=== PATIENT | female | born 1940 | race African-American/Black ===

== ENCOUNTER 2016-08-21 09:05 | Emergency (ER) | payer OTHER ==
--- NOTE | 2016-08-21 09:22 | PROVIDER DOCUMENTATION ---
HPI-Respiratory General - General Chief Complaint: Cough Stated Complaint: cough, seen thurs for same Time Seen by Provider: 08/21/16 09:16 Source: patient Allergies/Adverse Reactions: Patient Allergies Allergy/AdvReac Type Severity Reaction Status Date / Time codeine [Codeine] Allergy Severe ITCHING Verified 05/12/16 09:46 Home Medications: Esomeprazole [Nexium] 40 mg PO DAILY 03/29/13 Losartan/Hctz [Hyzaar 50/12.5 mg] 1 each PO QAM 03/29/13 Alprazolam [Xanax] 2 mg PO DAILY 11/11/15 Metronidazole [Flagyl] 500 mg PO BID 05/12/16 Promethazine [Phenergan] 25 mg PO Q6H PRN PRN 05/12/16 - History of Present Illness-Resp Nature of Presenting Problem: 6 days ago cough headache green phlegm camse to er tuesday nite cxr neg cough syrup and phenergan Quality of Pain: reports: aching, sharp Severity in ED: reports: mild Onset/Duration: reports: 6 days ago Timing: reports: still present Context: reports: recent URI Exposure: reports: illness exposure Cough Quality/Degree: reports: productive cough, blood streaked sputum Episode Frequency: occasional episodes Current Respiratory Medication Therapy: Initiated albuterol/atrovent inhale Modifying Factors: improves with: nothing Associated Symptoms: reports: cough, wheezing. denies: earache, fever/chills, flu-like symptoms, short of breath Similar Symptoms Previously?: Yes Recently seen or treated by another doctor?: Yes Review of Systems - Adult - REVIEW OF SYSTEMS - ADULT Constitutional: reports: chills. denies: fever Eyes: denies: discharge, dry eyes, redness Ears, Nose, Mouth & Throat: reports: hoarseness, throat pain. denies: ear discharge, ear pain, epistaxis Cardiovascular: denies: chest pain, palpitations Respiratory: reports: cough, shortness of breath Gastrointestinal: denies: constipation, diarrhea, nausea, vomiting Genitourinary: denies: dysuria, discharge, frequency, incontinence, urgency Musculoskeletal: reports: bone pain, muscle aches Integumentary: reports: no symptoms reported Neurological: reports: headache/migraines Psychiatric: reports: no symptoms reported Endocrine: reports: no symptoms reported Hematologic/Lymphatic: reports: no symptoms reported Allergic/Immunologic: reports: no symptoms reported Past History - Adult - PAST MEDICAL HISTORY-ADULT Review of Records: reports: Nursing Assessment Review, Medications Reviewed, Social history reviewed & non-contributory. Major Childhood Illnesses: reports: denies history Cardiovascular: reports: CAD, HTN Respiratory: reports: bronchitis Gastrointestinal: denies: GERD Psychiatric: reports: anxiety Endocrine/Immune: reports: Diabetes - PRIOR SURGERIES/PROCEDURES Surgical/Procedure History: reports: appendectomy, cholecystectomy, cardiac stent, hysterectomy, orthopedic (extremity) (Total knee ), back/neck (back sx), other (TMJ ) - PRIOR HOSPITALIZATIONS Prior Hospitalizations: reports: for other non-related - IMMUNIZATION STATUS Childhood Immunizations: See Nurse Assessment Flu Vaccine: See Nurse Assessment - FAMILY HISTORY Family History: reviewed, not pertinent Physical Exam-General - PHYSICAL EXAM-ADULT Initial Vital Signs Reviewed: Yes - CONSTITUTIONAL General Appearance: appears well - EYES Eyes: PERRL/EOMI, pink conjunctivae - HEAD, EARS, NOSE, MOUTH & THROAT HENMT: normocephalic/atraumatic, TMs normal, pharynx normal - NECK Neck: supple - RESPIRATORY Respiratory: wheezing - CARDIOVASCULAR Cardiovascular: normal peripheral pulses - GASTROINTESTINAL (ABDOMEN) Abdominal Exam: soft - LYMPHATIC Lymphatic: no adenopathy - MUSCULOSKELETAL Back Exam: normal inspection Extremity: normal range of motion - SKIN Integumentary: normal color, normal turgor - NEUROLOGIC Neurologic: grossly normal - PSYCHIATRIC Psych/Mental Status: normal mood/affect Progress - PLAN OF CARE/RESULTS Progress/Plan/Lab Results: Laboratory Tests 08/21/16 08/21/16 09:22 09:36 WBC 9.55 RBC 3.88 L Hgb 12.0 Hct 38.0 MCV 97.9 MCH 30.9 MCHC 31.6 L RDW Std Deviation 11.3 L Plt Count 186 MPV 9.8 Immature Gran % (Auto) 0.3 Neut % (Auto) 79.0 H Lymph % (Auto) 13.2 L [place] % (Auto) 5.4 Eos % (Auto) 1.7 Baso % (Auto) 0.4 Immature Gran # (Auto) 0.03 Neut # (Auto) 7.54 H Lymph # (Auto) 1.26 [place] # (Auto) 0.52 Eos # (Auto) 0.16 Baso # (Auto) 0.04 Specimen Type ARTERIAL Sample Site R BRACHIAL pH 7.43 pCO2 44 pO2 62 HCO3 28.1 H Base Excess 4.3 H Oxyhemoglobin 90.4 L ABG O2 Sat (Calculated) 14.8 L ABG O2 Saturation 95.8 ABG Carboxyhemoglobin 4.30 H ABG Methemoglobin 1.4 [place] Test YES A-a O2 Difference 33.0 Total Hemoglobin 11.6 Lactate 0.80 Blood Gas Modality ROOM AIR FiO2 % 21.0 - XRAY 1 XRAY Study: Chest Impression: Normal (nad) Departure - Departure Time of Disposition Order: 10:03 DIAGNOSIS: COPD exacerbation Disposition: HOME 01 Certified Medical Emergency: Emergent Condition: Stable Additional Instructions: ED Follow Up Instructions: You have been treated by a care provider in the Emergency Department. These instructions are being provided to you so you can have an understanding of how to care for yourself upon discharge. Upon discharge from the Emergency Department, you are responsible for making arrangements for follow-up care by a physician of your choice. Take all prescribed medications as directed. Return to the Emergency Department immediately for any new or worsening symptoms. You may call the Physician Referral phone number at [phone] to obtain a list of Physicians who are taking new patients. Prescriptions: Hydrocodone/Homatropine [Hydromet] 2 tsp PO Q4-6H PRN PRN #8 oz PRN Reason: Cough Prednisone 10 mg PO BID #10 tablet
[2016-08-21 09:37] LABS: BE 4.3 mmoll (-3.0-3.0); BLOOD TYPE ARTERIAL; DRAW SITE R BRACHIAL; METHB 1.4 % (0.0-1.5); O2(CT) 14.8 mL/dL (15.0-23.0); PCO2(98.6) 44 mmHg (35-45); PO2(98.6) 62 mmHg (60-100); SAMPLE BLOOD; SAO2 95.8 % (95.0-100.0); THB 11.6 g/dL (11.5-17.4); pH(98.6) 7.43 (7.35-7.45)
[2016-08-21 09:40] LABS: BASO% 0.4 % (0.0-0.8); EOS# 0.16 X1000 (0.0-0.7); EOS% 1.7 % (0.0-10.0); IMM GRAN# 0.03 X1000 (0.0-0.04); IMM GRAN% 0.3 % (0.0-0.5); LYMPH# 1.26 X1000 (1.2-3.4); LYMPH% 13.2 % (20.5-51.1); MANUAL DIFF NEEDED? NO; MCH 30.9 PG (27-31); MCHC 31.6 g/dL (33-37); MCV 97.9 FL (81-99); MONO# 0.52 X1000 (0.11-0.59); MONO% 5.4 % (1.7-9.3); MPV 9.8 FL (7.4-10.4); PLT 186 X1000 (130-400); RBC 3.88 XMIL (4.2-5.4)
[2016-08-21 09:42] LABS: MODALITY ROOM AIR
[2016-08-21 09:43] LABS: ALLEN TEST YES
[2016-08-21 10:15] VITALS: BP 136/71
--- NOTE | 2016-08-21 12:08 | Diag Imaging Result Document ---
PROCEDURE NAME: CHEST-2 VIEWS - 08/21/2016 PA AND LATERAL RADIOGRAPH OF THE CHEST: COMPARISON: 08/16/2016. FINDINGS: The lungs are grossly clear and are stable as compared to the previous study. There is no definite pleural fluid collection. Cardiac silhouette and central vasculature are grossly unremarkable. IMPRESSION: No evidence of acute pathology.
== END 2016-08-21 10:14 | disposition home or self-care (01) ==
LOC: P.ED 09:05
DX: J44.1 Chronic obstructive pulmonary disease with (acute) exacerbation (principal); R05 Cough; R06.2 Wheezing; R68.83 Chills (without fever); R07.0 Pain in throat; R06.02 Shortness of breath; I25.10 Atherosclerotic heart disease of native coronary artery without angina pectoris; I10 Essential (primary) hypertension; Z79.899 Other long term (current) drug therapy; M89.8X9 Other specified disorders of bone, unspecified site; M79.1 Myalgia; R51 Headache; Z95.5 Presence of coronary angioplasty implant and graft; E11.9 Type 2 diabetes mellitus without complications; F41.9 Anxiety disorder, unspecified; Z96.659 Presence of unspecified artificial knee joint
CPT/HCPCS: 36415; 71020; 82805; 85025; 99284

== ENCOUNTER 2016-10-30 10:22 | Emergency (ER) | payer OTHER ==
[2016-10-30 10:28] VITALS: BP 145/85
--- NOTE | 2016-10-30 12:29 | PROVIDER DOCUMENTATION ---
HPI-Musculoskeletal Pain/Inj - GENERAL Source: patient - LOWER EXTREMITY PAIN/INJURY Lower Extremities Pain: 5th toe: right <Olga Mondragon - Last Filed: 10/30/16 12:29> <Ayan Helms - Last Filed: 10/30/16 12:32> - GENERAL Chief Complaint: Sores/Lesions Stated Complaint: EXTREMITY PAIN Time Seen by Provider: 10/30/16 12:24 - HX OF PRESENT ILLNESS-MUSKULOSKELTAL Nature of Presenting Problem: [age] yo F presents to the ER with complaint of corn to R pinky toe. States it was bleeding last night when she got out of the shower. Denies hx of gout or any injury. (Olga Mondragon) Review of Systems - Adult - REVIEW OF SYSTEMS - ADULT Constitutional: denies: chills, fever Eyes: reports: no symptoms reported Ears, Nose, Mouth & Throat: reports: no symptoms reported Cardiovascular: reports: no symptoms reported Respiratory: reports: no symptoms reported Gastrointestinal: reports: no symptoms reported Genitourinary: reports: no symptoms reported Musculoskeletal: reports: joint pain, joint swelling Integumentary: reports: no symptoms reported Neurological: reports: no symptoms reported Psychiatric: reports: no symptoms reported Endocrine: reports: no symptoms reported Hematologic/Lymphatic: reports: no symptoms reported Allergic/Immunologic: reports: no symptoms reported All Other Systems: Reviewed and Negative <Olga Mondragon - Last Filed: 10/30/16 12:29> Past History - Adult - PAST MEDICAL HISTORY-ADULT Review of Records: reports: Nursing Assessment Review, Medications Reviewed, Social history reviewed & non-contributory. Major Childhood Illnesses: reports: denies history Cardiovascular: reports: CAD, HTN Respiratory: reports: bronchitis Gastrointestinal: denies: GERD Psychiatric: reports: anxiety Endocrine/Immune: reports: Diabetes Diabetes Type: Type 2 - PRIOR SURGERIES/PROCEDURES Surgical/Procedure History: reports: appendectomy, cholecystectomy, cardiac stent, hysterectomy, orthopedic (extremity) (Total knee ), back/neck (back sx), other (TMJ ) - PRIOR HOSPITALIZATIONS Prior Hospitalizations: reports: for other non-related - IMMUNIZATION STATUS Childhood Immunizations: See Nurse Assessment Flu Vaccine: See Nurse Assessment - FAMILY HISTORY Family History: reviewed, not pertinent <Olga Mondragon - Last Filed: 10/30/16 12:29> Physical Exam-Injury Related - Physical Exam-Injury Related Initial Vital Signs Reviewed: Yes General Appearance: appears well, alert, no apparent distress Eyes: PERRL/EOMI, pink conjunctivae Head, Ears, Nose, Mouth & Throat: normocephalic/atraumatic, normal ENT inspection Neck: supple, normal inspection Respiratory: no respiratory distress, no accessory muscle use Cardiovascular: normal peripheral pulses, regular rate, rhythm Back Exam: no CVA tenderness, no vertebral tenderness Extremity: normal gait, normal inspection, swelling (R pinky tow), tenderness ( R pinky toe) Integumentary: normal color, warm/dry Neurologic: grossly normal, no motor/sensory deficits Psych/Mental Status: normal mood/affect, normal thought content, normal thought process, oriented x 3 <Olga Mondragon - Last Filed: 10/30/16 12:29> Progress <Olga Mondragon - Last Filed: 10/30/16 12:29> <Ayan Helms - Last Filed: 10/30/16 12:32> - PLAN OF CARE/RESULTS Progress/Plan/Lab Results: Vital Signs Temp Pulse Resp BP Pulse Ox 10/30/16 10:26 97.4 F L 97 H 18 145/85 99 codeine [Codeine] Allergy (Severe, Verified 09/24/16 10:50) ITCHING Losartan/Hctz [Hyzaar 50/12.5 mg] 1 each PO QAM 03/29/13 Alprazolam [Xanax] 2 mg PO DAILY 11/11/15 Promethazine [Phenergan] 25 mg PO Q6H PRN PRN 05/12/16 Famotidine [Pepcid] 20 mg PO DAILY 09/24/16 Tizanidine [Zanaflex] 4 mg PO PRN PRN 09/24/16 (Olga Mondragon) Departure - Departure Time of Disposition Order: 12:29 Certified Medical Emergency: Emergent <Olga Mondragon - Last Filed: 10/30/16 12:29> - Departure Time of Disposition Order: 12:30 Certified Medical Emergency: Emergent <Ayan Helms - Last Filed: 10/30/16 12:32> - Departure DIAGNOSIS: [place] of toe Disposition: HOME 01 Condition: Stable Prescriptions: Mupirocin Cream [Bactroban Cream] 1 applicatn TOP TID #1 tube Referrals: Ayan Helms MD [Primary Care Provider] - Instructions: Musculoskeletal Pain Attestation - Scribe Verification/Attestation Scribe:: Olga Mondragon Acting as Scribe for:: Ayan Helms Scribe documention review:: This chart was documented by a scribe and accurately reflects the service the provider performed and the decisions made by the provider. <Olga Mondragon - Last Filed: 10/30/16 12:29> Physician Attestation
== END 2016-10-30 12:48 | disposition home or self-care (01) ==
LOC: P.ED 10:22
DX: L84 Corns and callosities (principal); M25.474 Effusion, right foot; M25.571 Pain in right ankle and joints of right foot; I25.10 Atherosclerotic heart disease of native coronary artery without angina pectoris; I10 Essential (primary) hypertension; E11.9 Type 2 diabetes mellitus without complications; Z95.5 Presence of coronary angioplasty implant and graft; Z96.659 Presence of unspecified artificial knee joint; Z79.899 Other long term (current) drug therapy
CPT/HCPCS: 99282